=== PATIENT | male | born 1970 | race Caucasian/White ===

== ENCOUNTER 2018-12-19 19:48 | Observation (INO) ==
[2018-12-19] MEDS ORDERED: ASPIRIN 81 MG TAB.CHEW PO ONE (20:12)
[2018-12-19] MEDS ORDERED: NITROGLYCERIN 0.4 MG/TAB BTL SL ONE ×2 (20:19→21:01)
--- NOTE | 2018-12-19 20:27 | ERNOTE ---
Chest Pain/Cardiac HPI Date of Service: 12/19/18 Chief Complaint: Chest Pain Time Seen by Provider: 12/19/18 20:14 Source: patient Exam Limitations: no limitations Immunizations: IMMUNIZATION HX Immunizations Up to Date Yes History of Influenza Vaccine Yes Allergies/Adverse Reactions: Allergies Penicillins Allergy (Mild, Verified 12/19/18 19:54) Other Pt doesnt' know what kind of reaction he has. Home Medications: HOME MEDICATIONS aripiprazole 10 mg tablet 10 mg PO DAILY #30 tab 12/17/18 [Last Taken Unknown] Pain Score #1 Pain Score: 5 Narrative: The patient is a 48 year old male who presents for right and sternal chest pain which has been present for 2 days. There are associated symptoms of fatigue and nausea. The patient reports right and midline anterior chest pain, 5/10. There are alleviating factors of rest. There are aggravating factors of activity. 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 The past medical history includes: Bipolar. The social history is negative. The patient has had no ill contacts. Patient denies shortness of breath at rest or with exertion. Patient report history of stress test with normal results several years ago. Review of Systems - Review of Systems Constitutional: Present: fatigue. Absent: fever EYE: Present: no symptoms reported ENT: Present: no symptoms reported. Absent: ear pain, nasal drainage, sore throat Respiratory: Present: cough. Absent: shortness of breath Cardiology: Present: chest pain Gastrointestinal/Abdominal: Present: nausea. Absent: vomiting, diarrhea, abdominal pain Genitourinary: Present: no symptoms reported. Absent: dysuria Musculoskeletal: Present: no symptoms reported. Absent: back pain Skin: Present: no symptoms reported. Absent: rash Neurological: Present: no symptoms reported All Other Systems: All systems neg except as marked Medical History (Updated 12/17/18 @ 09:35 by Juliano James DO) Bipolar disorder (Chronic) Bipolar depression (Chronic) Bipolar 1 disorder Onset Date: Unknown Surgical History: Surgical History (Updated 10/31/18 @ 09:47 by Anisa Adamson CMA) No history of previous surgery Family History: Family History (Updated 10/31/18 @ 09:48 by Anisa Adamson CMA) Grandfather Diabetes Grandmother Cancer Father Alcoholic cirrhosis Social History: Preferred Language Chilean Smoking Status Never smoker Alcohol Use none Drug Use none (Last Updated 12/17/18 @ 09:36 by Juliano James DO) No Social History Section defined Physical Exam - Physical Exam General Appearance: Present: wd/wn, alert, no apparent distress Head Exam: Present: normal inspection Eye Exam: Normal inspection: bilateral Ears, Nose, Throat: Present: normal ENT inspection, normal pharynx Neck: Present: normal inspection, tender lateral Respiratory: Present: no respiratory distress, normal breath sounds, no accessory muscle use, lungs clear, chest tenderness - right anterior and midline with palpation Cardiovascular/Chest: Present: regular rate, rhythm, no murmur Gastrointestinal/Abdominal: Present: normal bowel sounds, nontender, nondistended, soft, no organomegaly Neurological Exam: Present: alert, oriented, normal mood/affect Skin Exam: Present: normal color, warm/dry Progress - Date and Time Seen: Date and Time: 12/19/18 21:08 Pain 1/10 after administration of 2 Nitro. 12/19/18 22:06 Case discussed with , will admit for observation cp. - Results and Orders Patient's Lab Results:: I have reviewed the patient's lab results. - Vital Signs Patient's Vital Signs:: I have reviewed the patient's vital signs. Vital Signs: Vital Signs 12/19/18 19:51 12/19/18 20:05 Temperature 36.3 C Pulse Rate 64 71 Respiratory Rate 16 Blood Pressure 132/82 O2 Sat by Pulse Oximetry 100 - EKG EKG #1 EKG: NSR EKG read: Reviewed by me - X-Ray X-Ray #1 X-Ray: chest Interpretation: Interp. by me X-ray Comments: No acute cardiopulmonary abnormalities. - Progress/Reassessment Chief Complaint: Chest Pain Departure Clinical Impression: Chest pain Qualifiers: Chest pain type: unspecified Qualified Code(s): R07.9 - Chest pain, unspecified - Departure Disposition: Still a patient Condition: Good
[2018-12-19 20:29] LABS: Hematocrit 40.9 % (42.0-52.0); Hemoglobin 13.7 gm/dL (13.5-18.0); Mean Cell Volume 91.3 fl (78-100); Mean Corpuscular Hemoglobin 30.6 pg (27-31); Mean Corpuscular Hgb Conc 33.5 g/dl (32-36); Mean Platelet Volume 8.9 fl (8-11.3); Neutrophil # 4.8 K/mm3 (1.3-6.0); Neutrophil % 67.5 % (42-75.0); Platelet Count 316 K/mm3 (150-450); Red Blood Count 4.48 M/mm3 (4.7-6.0); Red Cell Distribution Width 12.9 % (11.5-14.0); White Blood Count 7.2 K/mm3 (4.0-10.5)
[2018-12-19 20:40] LABS: Prothrombin Time (Patient) 10.3 Seconds (9.1-10.7)
[2018-12-19 20:41] LABS: INR 1.04 INR (0.92-1.08); Partial Thrombolplastin Time 27.1 Seconds (24-32)
[2018-12-19 20:47] LABS: ALT 23 U/L (19-67); AST 16 U/L (0-48); Albumin * 3.5 gm/dl (3.4-5.0); Alkaline Phosphatase * 106 U/L (50-170); BUN/Creatinine Ratio 17.1 (9.0-21.6); Bilirubin, Total 0.4 mg/dL (0.0-1.1); Blood Urea Nitrogen 19 mg/dL (6-23); Ca. Corrected For Albumin 8.7 mg/dL (8.4-10.2); Calcium * 8.6 mg/dL (7.9-10.9); Carbon Dioxide 28.5 mmol/L (24-32.6); Chloride 105 mmol/L (97-106); Glucose * 110 mg/dL (70-110); Potassium 3.5 mmol/L (3.4-4.6); Sodium 141 mmol/L (132-142); Troponin I Less than 0.017 ng/mL (0.00-0.10)
[2018-12-19] MEDS ORDERED: ROSUVASTATIN CALCIUM 20 MG TABLET PO STA (21:36)
[2018-12-20] MEDS ORDERED: ARIPiprazole 10 MG TABLET PO SCH (09:00)
--- NOTE | 2018-12-20 12:22 | HP ---
Chief Complaint - Chief Complaint Date of Service: 12/20/18 Time of Service: 07:40 Chief Complaint: chest pain History of Present Illness: Israel is a 48 yo wh. male admitted to Obs. stay room 102 through the ER last night for chest pain R/O AMI. He has not had any more CP since admission. He has had an uneventful night. He has not had any Associatd symptoms of dyspnea, diaphoresis, nausea, lightheadedness, or radiation except into the R. shoulder. Pain is dexcribed as sharp. Review of CV risk factors are all neg. except for lipids. Adm. ECG and troponin are WNL. 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 Smoking Status Never smoker Have you smoked in the past 12 No months Alcohol Use none Drug Use none (Last Updated 12/17/18 @ 09:36 by Juliano James DO) No Social History Section defined Review Of Systems (GEN) - Review of Systems EENTM: Present: No Symptoms Reported Respiratory: Present: No Symptoms Reported Cardiac: Present: Chest Pain Abdominal: Present: No Symptoms Reported Genitourinary: Present: No Symptoms Reported Musculoskeletal: Present: No Symptoms Reported Neurological: Present: No Symptoms Reported Skin: Present: No Symptoms Reported Endocrine: Present: No Symptoms Reported Misc: All systems neg except as marked Immunizations: IMMUNIZATION HX Immunizations Up to Date Yes History of Influenza Vaccine Yes Allergies/Adverse Reactions: Allergies Allergy/AdvReac Type Severity Reaction Status Date / Time Penicillins Allergy Mild Other Verified 12/19/18 22:17 Home Medications: HOME MEDICATIONS aripiprazole 10 mg tablet 10 mg PO DAILY #30 tab 12/17/18 [Last Taken Unknown] Exam - Exam Vital Signs: Vital Signs - Last Taken Temp 36.8 C 12/20/18 10:26 Pulse 63 12/20/18 10:26 Resp 16 12/20/18 10:26 BP 115/71 12/20/18 10:26 Pulse Ox 97 12/20/18 10:26 Constitutional: Present: Alert, Oriented x3, Cooperative, Well developed, Well nourished, No distress ENT Exam: Present: normal ENT inspection, hearing grossly normal, pharynx normal, TMs normal Eye Exam: bilateral eye: normal inspection, PERRL, EOMI Neck: Present: non-tender, full range of motion, supple, normal inspection, trachea midline Back Exam: Present: normal inspection, no CVA tenderness, no vertebral tenderness Breasts: Present: Exam deferred Respiratory: Present: chest non-tender, lungs clear, normal breath sounds, no respiratory distress, no accessory muscle use Cardiovascular/Chest: Present: normal peripheral pulses, regular rate, rhythm, no chest tenderness, no edema, no gallop, no JVD, no murmur, no rub Peripheral Pulses: carotid (R): 2+, carotid (L): 2+, radial (R): 2+, radial (L): 2+ Abdomen: Present: Normal bowel sounds, soft, nontender, nondistended, no rebound tenderness, no hepatospenomegaly, no masses /Rectal: Present: Exam deferred Extremity: Present: normal range of motion, non-tender, normal inspection, no pedal edema, no calf tenderness, normal capillary refill Skin Exam: Present: normal color, warm/dry, no cyanosis 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, normal cerebellar test Appearance: Present: appropriate appearance, appropriate insight, neat, no memory impairment Eye contact: Present: cooperative, good eye contact, normal speech, avoids eye contact, refused to answer Thoughts: Present: normal thought pattern, no apparent hallucination Diagnostic Studies: Abnormal Lab Results 12/19/18 Range/Units 20:14 RBC 4.48 L (4.7-6.0) M/mm3 Hct 40.9 L (42.0-52.0) % Laboratory Results WBC 7.2 K/mm3 (4.0-10.5) 12/19/18 20:14 RBC 4.48 M/mm3 (4.7-6.0) L 12/19/18 20:14 Hgb 13.7 gm/dL (13.5-18.0) 12/19/18 20:14 Hct 40.9 % (42.0-52.0) L 12/19/18 20:14 MCV 91.3 fl (78-100) 12/19/18 20:14 MCH 30.6 pg (27-31) 12/19/18 20:14 MCHC 33.5 g/dl (32-36) 12/19/18 20:14 RDW 12.9 % (11.5-14.0) 12/19/18 20:14 Plt Count 316 K/mm3 (150-450) 12/19/18 20:14 MPV 8.9 fl (8-11.3) 12/19/18 20:14 Immature Gran % (Auto) 0.30 % (0.001-0.429) 12/19/18 20:14 Immature Gran # (Auto) 0.02 K/mm3 (0.000-0.0310) 12/19/18 20:14 67.5 % (42-75.0) 12/19/18 20:14 25.5 % (20-51) 12/19/18 20:14 5.0 % (0.0-9) 12/19/18 20:14 1.1 % (0.0-3.0) 12/19/18 20:14 0.6 % (0.0-1.0) 12/19/18 20:14 Nucleated RBC % 0.0 k/mm3 (0-1) 12/19/18 20:14 4.8 K/mm3 (1.3-6.0) 12/19/18 20:14 1.83 k/mm3 (1.5-3.5) 12/19/18 20:14 0.4 k/mm3 (0.0-1.0) 12/19/18 20:14 0.1 k/mm3 (0.0-0.7) 12/19/18 20:14 Absolute Basophils 0.0 k/mm3 (0.0-0.1) 12/19/18 20:14 PT 10.3 Seconds (9.1-10.7) 12/19/18 20:14 INR (Anticoag Therapy) 1.04 INR (0.92-1.08) 12/19/18 20:14 PTT ([place]) 27.1 Seconds (24-32) 12/19/18 20:14 Sodium 141 mmol/L (132-142) 12/19/18 20:14 141 mmol/L (130-142) 12/19/18 20:14 Potassium 3.5 mmol/L (3.4-4.6) 12/19/18 20:14 Chloride 105 mmol/L (97-106) 12/19/18 20:14 Carbon Dioxide 28.5 mmol/L (24-32.6) 12/19/18 20:14 11.0 mmol/L (6.8-13.8) 12/19/18 20:14 BUN 19 mg/dL (6-23) 12/19/18 20:14 1.11 mg/dL (0.4-1.4) 12/19/18 20:14 Est GFR (Non-Af Amer) 75 mL/min (60-130) 12/19/18 20:14 17.1 (9.0-21.6) 12/19/18 20:14 110 mg/dL (70-110) 12/19/18 20:14 Calcium 8.6 mg/dL (7.9-10.9) 12/19/18 20:14 Calcium Adj for Albumin 8.7 mg/dL (8.4-10.2) 12/19/18 20:14 0.4 mg/dL (0.0-1.1) 12/19/18 20:14 AST 16 U/L (0-48) 12/19/18 20:14 ALT 23 U/L (19-67) 12/19/18 20:14 106 U/L (50-170) 12/19/18 20:14 Less than 0.017 ng/mL (0.00-0.10) 12/20/18 02:14 7.0 gm/dL (6.2-8.2) 12/19/18 20:14 3.5 gm/dl (3.4-5.0) 12/19/18 20:14 Assessment/Plan - Narrative Narrative: 1. serial troponins 2. serial eCGs 3. continuous cardiac monitoring. - Assessment/Plan (1) Chest pain Problem: Resolved Qualifiers: Chest pain type: unspecified Qualified Code(s): R07.9 - Chest pain, unspecified
--- NOTE | 2018-12-20 12:25 | DS ---
(1) Chest pain Problem: Resolved Qualifiers: Chest pain type: precordial pain Qualified Code(s): R07.2 - Precordial pain Procedures Performed: none Results and Findings: Lab Pending Results 12/19/18 20:14: WBC 7.2, RBC 4.48 L, Hgb 13.7, Hct 40.9 L, MCV 91.3, MCH 30.6, MCHC 33.5, RDW 12.9, Plt Count 316, MPV 8.9, Immature Gran % (Auto) 0.30, Immature Gran # (Auto) 0.02, Neutrophils % 67.5, Lymphocytes % 25.5, Monocytes % 5.0, Eosinophils % 1.1, Basophils % 0.6, Nucleated RBC % 0.0, Neutrophils # 4.8, Lymphocytes # 1.83, Monocytes # 0.4, Eosinophils # 0.1, Absolute Basophils 0.0 12/19/18 20:14: PT 10.3, INR (Anticoag Therapy) 1.04, PTT ([place]ci) 27.1 12/19/18 20:14: Sodium 141, Plasma Sodium 141, Potassium 3.5, Chloride 105, Carbon Dioxide 28.5, Anion Gap 11.0, BUN 19, Creatinine 1.11, Est GFR (Non-Af Amer) 75, BUN/Creatinine Ratio 17.1, Random Glucose 110, Calcium 8.6, Calcium Adj for Albumin 8.7, Total Bilirubin 0.4, AST 16, ALT 23, Alkaline Phosphatase 106, Troponin I Less than 0.017, Total Protein 7.0, Albumin 3.5 12/20/18 02:14: Troponin I Less than 0.017 Discharge Location: Home Disposition: Home self-care Condition: Good Face to Face Encounter completed per CMS Guidelines: No Discharge Activity: Activity as tolerated Discharge Diet: General/regular food Referrals: Juliano James DO [Primary Care Provider] - Additional Patient Instructions (free text): Follow up with Dr. James on 01-02-19 at 10:00am. Complete Home Medications List: Complete Home Medication List: aripiprazole 10 mg tablet 10 mg PO DAILY #30 tab 12/17/18
[2018-12-20 13:13] VITALS: BP 123/82
== END 2018-12-20 13:33 | disposition home or self-care (01) ==
LOC: ER 19:48 → MS 19:48
PROVIDERS: ADMIT Internal Medicine; ATTEND Family Medicine
DX: R07.2 Precordial pain
CPT/HCPCS: 36415; 71020; 71046; 80053; 84484; 85025; 85610; 85730; 93005; 99285; G0378